=== PATIENT | female | born 1990 ===

== ENCOUNTER 2016-11-07 20:58 | Inpatient (IN) | payer OTHER ==
[2016-11-07] MEDS: hydrALAZINE 20 MG/ML VIAL IVP PRN ×2 (22:00→22:29)
[2016-11-07 22:04] LABS: % IMMATURE GRANULYOCYTES 1.1 % (0.0-1.1); ABSOLUTE IMMATURE GRANULOCYTES 0.14 10^3/uL (0.00-0.10); ADD DIFF? NO; ADD MORPH? NO; ADD SCAN? NO; ATYPICAL LYMPHOCYTE FLAG 0 (0-99); FRAGMENT RBC FLAG 0 (0-99); HEMOGLOBIN 13.5 g/dL (12.6-16.3); LEFT SHIFT FLG 0 (0-99); LIPEMIA HEMOLYSIS FLAG 90 (0-99); MEAN CELL HEMOGLOBIN 32.4 pg (27.9-34.1); MEAN CELL HEMOGLOBIN CONCENTR. 34.6 g/dL (32.4-36.7); MEAN CELL VOLUME 93.5 fL (81.5-99.8); MEAN PLATELET VOLUME 14.8 fL (8.7-11.7); PLATELET CLUMPS FLAG 0 (0-99); PLATELET COUNT 137 10^3/uL (150-400); RED BLOOD CELL COUNT 4.17 10^6/uL (4.18-5.33); RED CELL DISTRIBUTION WIDTH 13.7 % (11.5-15.2)
[2016-11-07] MEDS ORDERED: MAGNESIUM SULF 4 GM/WATER 100 ML BAG IV ONE (22:29)
[2016-11-07 22:31] LABS: ALANINE AMINOTRANSFERASE 21 IU/L (9-52); ASPARTATE AMINOTRANSFERASE 19 IU/L (14-46); BILIRUBIN,TOTAL 0.7 mg/dL (0.1-1.4); BILIRUBIN-CONJUGATED 0.3 mg/dL (0.0-0.5); BILIRUBIN-UNCONJUGATED 0.4 mg/dL (0.0-1.1); ETHANOL SERUM < 10 mg/dL (0-10); GLOMERULAR FILTRATION RATE > 60; LACTATE DEHYDROGENASE 559 IU/L (313-618); URIC ACID 7.5 mg/dL (2.5-6.8)
[2016-11-07] MEDS ORDERED: CALCIUM GLUC 10% 1 GM/10 ML VIAL IVP PRN (22:32)
[2016-11-07] MEDS ORDERED: MAGNESIUM SULF 4 GM/WATER 100 ML IV ONE (22:32)
[2016-11-07] MEDS ORDERED: LR 500 ML IV PRN (22:33)
[2016-11-07] MEDS ORDERED: CALCIUM CARBONATE 500 MG CHEWABLE TAB PO PRN (22:34)
[2016-11-07] MEDS ORDERED: LABETALOL HCL 50 MG/10 ML SYR IVP ONE (22:38)
[2016-11-07] MEDS ORDERED: Mag Sulf 500 ML IV SCH (22:45)
[2016-11-07] MEDS ORDERED: LABETALOL HCL 5 MG/ML 20 ML MDV IVP ONE (23:00)
[2016-11-07] MEDS ORDERED: OXYTOCIN/RINGERS LACTATE 500 ML IV SCH (23:00)
--- NOTE | 2016-11-07 23:08 | GHP ---
[f rep st] HISTORY AND PHYSICAL DATE OF ADMISSION: 11/07/2016 CHIEF COMPLAINT: Headache. HISTORY OF PRESENT ILLNESS: The patient is a 26-year-old, G1, P0 female who is at 40-1/2 weeks gestation dated by a 30-week ultrasound, who presents to labor and delivery with complaint of a headache that has been occurring for the past 3 days, which was not relieved with Tylenol. She also states her vision is somewhat blurred on her right side. She does have a history of migraines and states that this is not similar to her previous migraines. Her initial blood pressure is 166/115. PAST MEDICAL HISTORY: Negative. PAST SURGICAL HISTORY: Previous foot surgery. GYNECOLOGIC HISTORY: Noncontributory. FAMILY HISTORY: Significant for breast cancer. OBSTETRICAL HISTORY: This is her first . It was an unplanned . She has not received care other than ultrasound at 30 weeks for gestational dating. SOCIAL HISTORY: She is here without a partner. States she is doing well. This is an unplanned and she anticipates placing this child up for adoption. REVIEW OF SYSTEMS: Positive for headache and visual changes. She also complains of heartburn. She denies any loss of fluid or vaginal bleeding. She does state she has increased discharge. PHYSICAL EXAMINATION: VITAL SIGNS: Blood pressure is 166/115, heart rate is 87 , and temperature is 37.0. GENERAL: She is in no apparent distress. ABDOMEN: Gravid, nontender. She has no right upper quadrant pain. EXTREMITIES: She has no peripheral edema. NEUROLOGICAL: Her reflexes are 3+. PELVIC: First cervical exam is 2, 90, and -1 station. LABORATORY DATA: Her platelets are significant for 137. Her chemistries are pending. ASSESSMENT AND PLAN: At this point, I discussed with the patient that she likely has severe preeclampsia, given her elevated blood pressure and headache, and recommend proceeding to induction of labor with Gibbs bulb and Pitocin. The patient agrees to this plan. In terms of induction, she will have a Gibbs bulb placed and Pitocin begun in the morning. For severe preeclampsia, she will begin magnesium. For blood pressure management, she has received 2 doses of hydralazine with her blood pressure initially going down to 134/100. If the hydralazine does not improve her blood pressure, then we will begin IV labetalol. /[id number]/MODL MTDD
[2016-11-07] MEDS ORDERED: IBUPROFEN 600 MG TAB PO PRN (23:20)
[2016-11-07] MEDS ORDERED: EPSOM SALT 454 GM TP PRN (23:20)
[2016-11-07] MEDS ORDERED: LR 1,000 ML IV PRN (23:20)
[2016-11-07] MEDS ORDERED: OLIVE OIL 118 ML BTL MISC PRN (23:20)
[2016-11-07] MEDS ORDERED: TERBUTALINE SULFATE 1 MG/ML VIAL IV PRN (23:20)
[2016-11-07] MEDS: ONDANSETRON 4 MG/2 ML VIAL IVP PRN (23:46)
[2016-11-08 00:21] LABS: COLOR AMBER; LEUKOCYTE ESTERASE,URINE NEGATIVE (NEGATIVE); NITRITE,URINE NEGATIVE (NEGATIVE)
[2016-11-08] MEDS ORDERED: LIDOCAINE 2% JELLY 5 ML TUBE ONE (00:26)
[2016-11-08 01:01] LABS: BACTERIA 4+ /hpf (NONE SEEN); MUCUS 4+ /lpf (NONE-1+); WBC,URINE 25-50 /hpf (0-3)
[2016-11-08] MEDS ORDERED: OXYTOCIN 10 UNIT/ML VIAL ONE (02:03)
[2016-11-08] MEDS ORDERED: LIDOCAINE 1% 300 MG/30 ML SDV ONE (02:03)
[2016-11-08] MEDS ORDERED: OLIVE OIL 118 ML BTL ONE (02:03)
[2016-11-08] MEDS ORDERED: AMMONIA AROMATIC 1 EACH AMP IH ONE (02:03)
[2016-11-08] MEDS ORDERED: TERBUTALINE SULFATE 1 MG/ML VIAL ONE (02:03)
[2016-11-08] MEDS ORDERED: MISOPROSTOL 200 MCG TAB ONE (02:04)
[2016-11-08] MEDS: ACETAMINOPHEN 500 MG TAB PO PRN ×3 (02:05→15:56)
[2016-11-08 02:24] LABS: COLOR YELLOW; LEUKOCYTE ESTERASE,URINE NEGATIVE (NEGATIVE); NITRITE,URINE NEGATIVE (NEGATIVE)
[2016-11-08 02:33] LABS: HYALINE CASTS 25-50 /lpf (0-1); MUCUS 4+ /lpf (NONE-1+)
[2016-11-08] MEDS: FAMOTIDINE 20 MG/NACL 50 ML IV ONE ×2 (03:16→06:02)
[2016-11-08] MEDS: ONDANSETRON 4 MG/2 ML VIAL IVP PRN (03:43)
[2016-11-08 04:56] LABS: RUBELLA 3.43 IU/mL
[2016-11-08] MEDS ORDERED: FAMOTIDINE 20 MG/NACL/50 ML BAG IV ONE (05:54)
[2016-11-08 06:49] LABS: % IMMATURE GRANULYOCYTES 1.6 % (0.0-1.1); ABSOLUTE IMMATURE GRANULOCYTES 0.26 10^3/uL (0.00-0.10); ADD DIFF? NO; ADD MORPH? NO; ADD SCAN? NO; ATYPICAL LYMPHOCYTE FLAG 0 (0-99); FRAGMENT RBC FLAG 0 (0-99); HEMATOCRIT 40.2 % (38.0-47.0); HEMOGLOBIN 13.9 g/dL (12.6-16.3); LEFT SHIFT FLG 10 (0-99); LIPEMIA HEMOLYSIS FLAG 90 (0-99); MEAN CELL HEMOGLOBIN 32.6 pg (27.9-34.1); MEAN CELL HEMOGLOBIN CONCENTR. 34.6 g/dL (32.4-36.7); MEAN CELL VOLUME 94.4 fL (81.5-99.8); MEAN PLATELET VOLUME 14.4 fL (8.7-11.7); PLATELET CLUMPS FLAG 10 (0-99); PLATELET COUNT 139 10^3/uL (150-400); RED BLOOD CELL COUNT 4.26 10^6/uL (4.18-5.33); RED CELL DISTRIBUTION WIDTH 13.9 % (11.5-15.2)
[2016-11-08 07:12] LABS: ALANINE AMINOTRANSFERASE 23 IU/L (9-52); ASPARTATE AMINOTRANSFERASE 23 IU/L (14-46); CREATININE 1.1 mg/dL (0.6-1.0); GLOMERULAR FILTRATION RATE 59; LACTATE DEHYDROGENASE 679 IU/L (313-618)
--- NOTE | 2016-11-08 07:50 | OBPROG ---
OBG Labor Progress Note Assessment/Plan: Assessment: G1 at 40w2d No PNC Severe preeclampsia: BPs, RIDER (resolved), proteinuria, elevated creatinine to 1.1 Platelets stable Normal LFTs Plan: Continue mag Continue fluid restriction Continue pitocin Amniotomy Epidural prn Treat severe range BPs prn 11/08/16 07:49 Subjective: just starting to feel ctx. FB fell out Objective: 11/08/16 06:35 11/08/16 06:35 Patient ABO/Rh O POSITIVE 11/07/16 21:50 Uric Acid 8.0 mg/dL (2.5-6.8) H 11/08/16 06:35 Total Bilirubin 0.7 mg/dL (0.1-1.4) 11/07/16 21:50 Conjugated Bilirubin 0.3 mg/dL (0.0-0.5) 11/07/16 21:50 Unconjugated Bilirubin 0.4 mg/dL (0.0-1.1) 11/07/16 21:50 AST 23 IU/L (14-46) 11/08/16 06:35 ALT 23 IU/L (9-52) 11/08/16 06:35 Lactate Dehydrogenase 679 IU/L (313-618) H 11/08/16 06:35 Temp Pulse Resp BP Pulse Ox 63 161/101 H 11/07/16 23:00 11/07/16 23:00 VSS, mild range to normal BPs - SVE Dilation (cm): 5 Effacement (%): 75 Station: -2 Pete Current Contraction Pattern: Irregular FHR (bpm): 120 FHR Pattern Variability: Moderate FHR Category: 1 Membranes: AROM Amniotic Fluid Color: Clear - Procedures Non-surgical Procedures: Amniotomy Oxytocin Orders Assessment - Pre-Induction/Augmentation Assessment Gestational Age: 40 week(s) and 1 day(s) ICD10 Worksheet Patient Problems: Problems Problem Status Onset Severe pre-eclampsia Acute
[2016-11-08] MEDS ORDERED: BUPIVACAINE 0.25% 30 ML SDV ONE (09:03)
[2016-11-08] MEDS ORDERED: PHENYLEPHRINE HCL 100 MCG/ML SYR ONE ×2 (09:03→22:53)
[2016-11-08] MEDS ORDERED: fentaNYL 2MCG/ML/BUP 0.1% RTU 100 ML BAG EP ONE (09:03)
[2016-11-08] MEDS ORDERED: fentaNYL 100 MCG/2 ML INJ ONE ×2 (09:05→22:05)
--- NOTE | 2016-11-08 10:20 | OBPROG ---
OBG Labor Progress Note Assessment/Plan: Assessment: G1 at 40w2d No PNC Severe preeclampsia: BPs, RIDER (resolved), proteinuria, elevated creatinine to 1.1. Platelets stable Normal LFTs BPs stable FHR overall reassuring, but with low baseline. Previously 120 overnight, down to 110 this AM, now down to 105. Overall with mod partha, + accels, no decels No change in cervical dilation despite AROM and pit. did have hypotension with epidural s/p phenylephrine Plan: Continue mag Continue fluid restriction Continue pitocin IUPC Monitor continuously--fluids, keep BP in normal range, O2, position changes Mag check Treat severe range BPs prn Subjective: comfortable with epidural Objective: 11/08/16 06:35 11/08/16 06:35 Patient ABO/Rh O POSITIVE 11/07/16 21:50 Uric Acid 8.0 mg/dL (2.5-6.8) H 11/08/16 06:35 Total Bilirubin 0.7 mg/dL (0.1-1.4) 11/07/16 21:50 Conjugated Bilirubin 0.3 mg/dL (0.0-0.5) 11/07/16 21:50 Unconjugated Bilirubin 0.4 mg/dL (0.0-1.1) 11/07/16 21:50 AST 23 IU/L (14-46) 11/08/16 06:35 ALT 23 IU/L (9-52) 11/08/16 06:35 Lactate Dehydrogenase 679 IU/L (313-618) H 11/08/16 06:35 Temp Pulse Resp BP Pulse Ox 63 161/101 H 11/07/16 23:00 11/07/16 23:00 - SVE Dilation (cm): 5 Effacement (%): 75 Station: -2 Pete FHR (bpm): 105 FHR Pattern Variability: Moderate FHR Category: 1 Membranes: AROM Amniotic Fluid Color: Clear - Procedures Non-surgical Procedures: Amniotomy, IUPC Oxytocin Orders Assessment - Pre-Induction/Augmentation Assessment Gestational Age: 40 week(s) and 1 day(s) ICD10 Worksheet Patient Problems: Problems Problem Status Onset Severe pre-eclampsia Acute
--- NOTE | 2016-11-08 10:28 | PREANESOB ---
Obstetric Pre-Anesthesia Info - General Info Proposed Procedure: Labor and delivery with pitocin. : 1 Para: 0 WBD: 40 - Info Status: Full Term Monitors: External FHR Baseline (bpm): 100 FHR Pattern: Non-reassuring - Labor Status Cervical Dilation per last OB SVE: 5 Station per last OB SVE: -2 Pitocin: In Use PIH: Severe Magnesium Sulfate in Use: Yes Indications for Labor Analgesia: Induction of Labor, Pain Control Labor Epidural: Proposed Anesthesia ROS: Prior general anesthesia for foot surgery. History of migraines. Allergies/Adverse Reactions: Allergy/AdvReac Type Severity Reaction Status Date / Time No Known Allergies Allergy Unverified 11/07/16 21:16 Home Medications: Medication Instructions Recorded 11/08/16 Visit Medications: Generic Name Dose Route Start Last Admin Trade Name Freq PRN Reason Stop Dose Admin Acetaminophen 1,000 mg 11/07/16 22:34 11/08/16 07:37 Tylenol PO 05/06/17 22:33 1,000 mg Q6HRS PRN Administration Pain, Mild/Fever, Can Take PO Calcium Carbonate 500 mg 11/07/16 22:34 11/08/16 03:37 Tums PO 05/06/17 22:33 500 mg TID PRN Administration Indigestion Calcium Gluconate 1 gm 11/07/16 22:32 Calcium Gluconate IVP 05/06/17 22:31 PRN PRN Magnesium Toxicity Hydralazine HCl 10 mg 11/07/16 21:17 11/07/16 22:29 Apresoline IVP 05/06/17 21:16 10 mg Q30M PRN Administration IF BP>160/110 Lactated Ringer's 500 mls @ 500 mls/hr 11/07/16 22:33 11/07/16 23:04 Lr IV 500 mls PRN PRN Administration Maternal Hypotension Magnesium Sulfate 500 mls @ 50 mls/hr 11/07/16 22:45 11/07/16 23:50 Magnesium Sulfate 20 Gm/ 500 Ml (Premix) IV 05/06/17 22:44 500 mls CONT CRISTY Administration Oxytocin/Lactated Ringer's 500 mls @ 0 mls/hr 11/07/16 23:00 11/08/16 06:03 Pitocin 30 Units/Lr (Premix) IV 05/06/17 22:59 500 mls CONT CRISTY Administration Protocol Per Protocol Lactated Ringer's 1,000 mls @ 0 mls/hr 11/07/16 23:20 Lr IV 05/06/17 23:19 PRN PRN SEE PROTOCOL CONDITIONS Protocol Per Protocol Ibuprofen 600 mg 11/07/16 23:20 Motrin PO 05/06/17 23:19 Q6HRS PRN post , inflammation Magnesium Sulfate 454 gm 11/07/16 23:20 Epsom Salt TP 05/06/17 23:19 Q1H PRN perineal discomfort [place] Oil 118 ml 11/07/16 23:20 Sweet Oil MISC 05/06/17 23:19 ONCE PRN preneal massage Ondansetron HCl 4 mg 11/07/16 22:48 11/08/16 03:43 Zofran IVP 05/06/17 22:47 4 mg Q4HRS PRN Administration Nausea/Vomiting, Can't Take PO Terbutaline Sulfate 0.25 mg 11/07/16 23:20 Brethine IV 05/06/17 23:19 ONCE PRN Tachysystole Discontinued Medications Generic Name Dose Route Start Last Admin Trade Name Freq PRN Reason Stop Dose Admin Ammonia (Aromatic Spirit) Confirm 11/08/16 02:03 Ammonia Aromatic Administered 11/08/16 02:04 Dose 1 each IH .STK-MED ONE Bupivacaine HCl Confirm 11/08/16 09:03 Sensorcaine 0.25% Sdv Administered 11/08/16 09:04 Dose 30 ml .ROUTE .STK-MED ONE Famotidine/Sodium Chloride Confirm 11/08/16 05:54 Pepcid 20 Mg (Premix) Administered 11/08/16 05:55 Dose 20 mg IV .STK-MED ONE Fentanyl Confirm 11/08/16 09:05 Sublimaze Administered 11/08/16 09:06 Dose 100 mcg .ROUTE .STK-MED ONE Fentanyl/Bupivacaine HCl Confirm 11/08/16 09:03 Fentanyl/Bupivacaine/Ns 2 Mcg/Ml 0.1% (Premix Administered 11/08/16 09:04 Dose 100 ml EP .STK-MED ONE Famotidine/Sodium Chloride 50 mls @ 200 mls/hr 11/07/16 22:34 11/08/16 06:02 Pepcid 20 Mg (Premix) IV 11/07/16 22:48 50 mls ONCE ONE Administration Magnesium Sulfate 100 mls @ 200 mls/hr 11/07/16 22:32 11/07/16 23:10 Magnesium Sulf 4 Gm (Premix) IV 11/07/16 23:01 100 mls ONCE ONE Administration Labetalol HCl 20 mg 11/07/16 22:38 11/08/16 03:17 Labetalol Hcl IVP 11/07/16 22:39 Not Given ONCE ONE Labetalol HCl 20 mg 11/07/16 23:00 11/07/16 23:00 Trandate Injection IVP 11/07/16 23:01 20 mg ONCE ONE Administration Lidocaine Confirm 11/08/16 00:26 Lidocaine 2% Jelly Administered 11/08/16 00:27 Dose 5 oliva .ROUTE .STK-MED ONE Lidocaine HCl Confirm 11/08/16 02:03 Lidocaine Hcl 1% Administered 11/08/16 02:04 Dose 300 mg .ROUTE .STK-MED ONE Magnesium Sulfate Confirm 11/07/16 22:29 Magnesium Sulf 4 Gm (Premix) Administered 11/07/16 22:30 Dose 4 gm IV .STK-MED ONE Misoprostol Confirm 11/08/16 02:04 Cytotec Administered 11/08/16 02:05 Dose 800 mcg .ROUTE .STK-MED ONE [place] Oil Confirm 11/08/16 02:03 Sweet Oil Administered 11/08/16 02:04 Dose 118 ml .ROUTE .STK-MED ONE Oxytocin Confirm 11/08/16 02:03 Pitocin Administered 11/08/16 02:04 Dose 30 unit .ROUTE .STK-MED ONE Phenylephrine HCl Confirm 11/08/16 09:03 Neosynephrine Administered 11/08/16 09:04 Dose 1,000 mcg .ROUTE .STK-MED ONE Terbutaline Sulfate Confirm 11/08/16 02:03 Brethine Administered 11/08/16 02:04 Dose 1 mg .ROUTE .STK-MED ONE - Anesthesia History Response to Local Anesthetics: Normal Anesthesia & Operative History: No Prior Problems Family Anesthesia History: Negative - Social History Substance Use/Abuse: Denies (Quit smoking.) - Focused Exam Latest Vital Signs (Nursing): Temp Pulse Resp BP Pulse Ox 63 161/101 H 11/07/16 23:00 11/07/16 23:00 Blood Pressure: 138/89 Heart Rate: 74 Respiratory Rate: 16 Height/Weight (Nursing): Height 154.94 cm Weight 65.771 kg Airway: No abnormalities. Physical Exam: Within normal limits. ASA Status: II Labs: 11/08/16 06:35 11/08/16 06:35 Patient ABO/Rh O POSITIVE 11/07/16 21:50 Uric Acid 8.0 mg/dL (2.5-6.8) H 11/08/16 06:35 Total Bilirubin 0.7 mg/dL (0.1-1.4) 11/07/16 21:50 Conjugated Bilirubin 0.3 mg/dL (0.0-0.5) 11/07/16 21:50 Unconjugated Bilirubin 0.4 mg/dL (0.0-1.1) 11/07/16 21:50 AST 23 IU/L (14-46) 11/08/16 06:35 ALT 23 IU/L (9-52) 11/08/16 06:35 Lactate Dehydrogenase 679 IU/L (313-618) H 11/08/16 06:35 - Plan Anesthetic Plan: CSE Consent Signed and on Chart: Yes Patient/Guardian Understands and Agrees to Plan: Yes Urgent/Emergent Case: José Luis brumfield completed preop but documented later for safe timely pt care
[2016-11-08 10:30] VITALS: RESP 16
--- NOTE | 2016-11-08 10:31 | POSTANESTH ---
Post Anesthetic Evaluation Cardiovascular Status: Tx Hyper/Hypo-tension Respiratory Status: Normal, Stable Level of Consciousness/Mental Status: Can Participate in Eval Pain Control: Adequate, Prn Tx Ordered Nausea/Vomiting Control: Adequate, Prn Tx Ordered Complications Possibly Related to Anesthesia: None Noted (BP stable after phenylephrine.)
[2016-11-08] MEDS ORDERED: PHENYLEPHRINE HCL 100 MCG/ML SYR IVP PRN (10:32)
[2016-11-08] MEDS ORDERED: fentaNYL 2MCG/ML/BUP 0.1% RTU 100 ML EP SCH (11:00)
[2016-11-08] MEDS ORDERED: LR 500 ML IV SCH (11:00)
--- NOTE | 2016-11-08 12:55 | OBPROG ---
OBG Labor Progress Note Assessment/Plan: Assessment: G1 at 40w2d No PNC, dated by 30 week US Severe preeclampsia: BPs, RIDER (resolved), proteinuria, elevated creatinine to 1.1. Platelets stable Normal LFTs BPs stable FHR overall reassuring, but with low baseline. Previously 120 overnight, down to 100-105 this AM. Now back to 105-110. Overall moderate variability and spontaneous accels, no e/o distress. No change in cervix despite pitocin = 22 mu/min and AROM 6.5 hrs ag Plan: Continue mag (decreased to 1.5, will now decrease to 1.0 given the higher level and she is c/o loss of feeling in her tongue). DTRs minimal. Will repeat mag check in 1-2 hours to ensure is not continuing to rise. Continue fluid restriction Continue pitocin, OK to increase to 30 mu/min IUPC Monitor continuously--fluids, keep BP in normal range, O2, position changes Treat severe range BPs prn Reviewed plan of care with pt, unable to get adequate MVUs, if this continues despite pitocin = 30 mu/min that may require C/S. She agrees with plan. 11/08/16 12:52 Subjective: Had some pressure, better after pushing epidural button Objective: 11/08/16 06:35 11/08/16 06:35 Patient ABO/Rh O POSITIVE 11/07/16 21:50 Uric Acid 8.0 mg/dL (2.5-6.8) H 11/08/16 06:35 Total Bilirubin 0.7 mg/dL (0.1-1.4) 11/07/16 21:50 Conjugated Bilirubin 0.3 mg/dL (0.0-0.5) 11/07/16 21:50 Unconjugated Bilirubin 0.4 mg/dL (0.0-1.1) 11/07/16 21:50 AST 23 IU/L (14-46) 11/08/16 06:35 ALT 23 IU/L (9-52) 11/08/16 06:35 Lactate Dehydrogenase 679 IU/L (313-618) H 11/08/16 06:35 Temp Pulse Resp BP Pulse Ox 74 16 138/89 H 11/08/16 10:30 11/08/16 10:30 11/08/16 10:30 Mag level = 9.1 - SVE Dilation (cm): 5 Effacement (%): 75 Station: -2 Pete Current Contraction Pattern: Irregular, Other (Specify) (MVU 88-120) FHR (bpm): 105 FHR Pattern Variability: Moderate FHR Category: 1 Membranes: AROM Amniotic Fluid Color: Clear - Procedures Non-surgical Procedures: Amniotomy, IUPC Oxytocin Orders Assessment - Pre-Induction/Augmentation Assessment Gestational Age: 40 week(s) and 1 day(s) ICD10 Worksheet Patient Problems: Problems Problem Status Onset Severe pre-eclampsia Acute
--- NOTE | 2016-11-08 17:46 | OBPROG ---
OBG Labor Progress Note Assessment/Plan: Assessment: G1 at 40w2d No PNC, dated by 30 week US Severe preeclampsia: BPs, RIDER (resolved), proteinuria, elevated creatinine to 1.1. Mag level elevated to 9.3 despite turning down mag to 1 g/hr. Mag now off for last few hours Repeat PIH labs including creatinine BPs stable, no sustained severe range FHR overall reassuring, but with low baseline. Previously 120 overnight, down to 100-105 this AM. Now back to 105-110. Overall moderate variability and spontaneous accels, no e/o distress. Slow change in cervix, now 6 cm, MVUs still inadequate but improved to 100-150 on 30 mu/min of pit UOP adequate Plan: Recheck mag level now and then likely restart at 1g/hr with goal between 4-8. Continue fluid restriction Continue pitocin, stay at 30 mu/min IUPC in place Monitor continuously--fluids, keep BP in normal range, O2, position changes Treat severe range BPs prn Reviewed plan of care with pt, if no change by 4 hours would consider arrest of dilation, she agrees with plan Reviewed plan of care with adoptive parents and reviewed their preferences for delivery Subjective: In good spirits. Adoptive parents at bedside, flew in from [place] Objective: 11/08/16 06:35 11/08/16 06:35 Patient ABO/Rh O POSITIVE 11/07/16 21:50 Uric Acid 8.0 mg/dL (2.5-6.8) H 11/08/16 06:35 Total Bilirubin 0.7 mg/dL (0.1-1.4) 11/07/16 21:50 Conjugated Bilirubin 0.3 mg/dL (0.0-0.5) 11/07/16 21:50 Unconjugated Bilirubin 0.4 mg/dL (0.0-1.1) 11/07/16 21:50 AST 23 IU/L (14-46) 11/08/16 06:35 ALT 23 IU/L (9-52) 11/08/16 06:35 Lactate Dehydrogenase 679 IU/L (313-618) H 11/08/16 06:35 Temp Pulse Resp BP Pulse Ox 74 16 138/89 H 11/08/16 10:30 11/08/16 10:30 11/08/16 10:30 Mag = 9.1 --> 1 g/hr --> 9.3 --> 0 g/hr --> [] - SVE Dilation (cm): 6 Effacement (%): 80 Station: -2 Pete FHR (bpm): 105 FHR Pattern Variability: Absent, Moderate FHR Category: 1 Membranes: AROM Amniotic Fluid Color: Clear - Procedures Non-surgical Procedures: Amniotomy, IUPC Oxytocin Orders Assessment - Pre-Induction/Augmentation Assessment Gestational Age: 40 week(s) and 1 day(s) ICD10 Worksheet Patient Problems: Problems Problem Status Onset Severe pre-eclampsia Acute
[2016-11-08 18:30] LABS: ALANINE AMINOTRANSFERASE 20 IU/L (9-52); ASPARTATE AMINOTRANSFERASE 19 IU/L (14-46); BILIRUBIN,TOTAL 0.9 mg/dL (0.1-1.4); BILIRUBIN-CONJUGATED 0.6 mg/dL (0.0-0.5); BILIRUBIN-UNCONJUGATED 0.3 mg/dL (0.0-1.1); CREATININE 1.1 mg/dL (0.6-1.0); GLOMERULAR FILTRATION RATE 59; LACTATE DEHYDROGENASE 579 IU/L (313-618)
[2016-11-08 18:35] LABS: MAGNESIUM 6.7 mg/dL (1.6-2.3)
[2016-11-08 18:56] LABS: % IMMATURE GRANULYOCYTES 1.8 % (0.0-1.1); ABSOLUTE IMMATURE GRANULOCYTES 0.26 10^3/uL (0.00-0.10); ABSOLUTE NRBC COUNT 0.03 10^3/uL (0-0.01); ADD DIFF? NO; ADD MORPH? NO; ADD SCAN? NO; ATYPICAL LYMPHOCYTE FLAG 10 (0-99); FRAGMENT RBC FLAG 0 (0-99); HEMATOCRIT 37.5 % (38.0-47.0); HEMOGLOBIN 12.9 g/dL (12.6-16.3); LEFT SHIFT FLG 10 (0-99); LIPEMIA HEMOLYSIS FLAG 90 (0-99); MEAN CELL HEMOGLOBIN 32.5 pg (27.9-34.1); MEAN CELL HEMOGLOBIN CONCENTR. 34.4 g/dL (32.4-36.7); MEAN CELL VOLUME 94.5 fL (81.5-99.8); MEAN PLATELET VOLUME 14.7 fL (8.7-11.7); NRBC-AUTO% 0.2 % (0.0-0.2); PLATELET CLUMPS FLAG 10 (0-99); PLATELET COUNT 149 10^3/uL (150-400); RED BLOOD CELL COUNT 3.97 10^6/uL (4.18-5.33); RED CELL DISTRIBUTION WIDTH 13.8 % (11.5-15.2)
--- NOTE | 2016-11-08 20:50 | OBPROG ---
OBG Labor Progress Note Assessment/Plan: Assessment: G1 at 40w2d No PNC, dated by 30 week US Adopting out child: adoptive parents are here Severe preeclampsia: BPs, RIDER (resolved), proteinuria, elevated creatinine to 1.1 , stable Mag level improved after briefly stopping magnesium. Now at 0.5 g/hr BPs stable, no sustained severe range FHR overall reassuring, but with low baseline. Previously 120 overnight, down to 100-105 this AM. Now back to 105-110. Overall moderate variability and spontaneous accels, no e/o distress. Slow change in cervix, after 3 hours changed only from 6 to 6.5 cm. Improvement in descent (now at -1 station). However MVUs are slowly dropping despite pit 30 mu/min UOP adequate IUPC fell out on check Plan: Recheck mag level now, adjust prn Continue fluid restriction Continue pitocin, will do pit rest x 15 min and then restart at 16 mu/min as her MVUs have been dropping off, see if we can improve contraction frequency and strength Replace IUPC prn Monitor continuously--fluids, keep BP in normal range, O2, position changes Treat severe range BPs prn Reviewed plan of care with pt, if cannot get MVUs adequate and no significant change in next hour will plan C/S for arrest of dilation. She agrees with plan. 11/08/16 20:43 Subjective: sleeping. Got another RIDER when mag restarted Objective: 11/08/16 18:05 11/08/16 18:05 Patient ABO/Rh O POSITIVE 11/07/16 21:50 Uric Acid 8.0 mg/dL (2.5-6.8) H 11/08/16 18:05 Total Bilirubin 0.9 mg/dL (0.1-1.4) 11/08/16 18:05 Conjugated Bilirubin 0.6 mg/dL (0.0-0.5) H 11/08/16 18:05 Unconjugated Bilirubin 0.3 mg/dL (0.0-1.1) 11/08/16 18:05 AST 19 IU/L (14-46) 11/08/16 18:05 ALT 20 IU/L (9-52) 11/08/16 18:05 Lactate Dehydrogenase 579 IU/L (313-618) 11/08/16 18:05 Temp Pulse Resp BP Pulse Ox 74 16 138/89 H 11/08/16 10:30 11/08/16 10:30 11/08/16 10:30 BPs: mild range - SVE Dilation (cm): 6 (6.5) Effacement (%): 80 Station: -1 Pete FHR (bpm): 105 FHR Pattern Variability: Moderate Membranes: AROM Amniotic Fluid Color: Clear - Procedures Non-surgical Procedures: Amniotomy, IUPC Oxytocin Orders Assessment - Pre-Induction/Augmentation Assessment Gestational Age: 40 week(s) and 1 day(s) ICD10 Worksheet Patient Problems: Problems Problem Status Onset Severe pre-eclampsia Acute
[2016-11-08] MEDS ORDERED: LR 500 ML IV ONE (22:02)
[2016-11-08] MEDS ORDERED: ceFAZolin 2 GM/DEXTROSE 100 ML IV ONE (22:02)
[2016-11-08] MEDS ORDERED: LIDO/EPI 2% **for epidural** 20 ML SDV ONE (22:05)
--- NOTE | 2016-11-08 22:13 | OBPROG ---
OBG Labor Progress Note Assessment/Plan: Assessment: G1 at 40w2d No PNC, dated by 30 week US Adopting out child: adoptive parents are here Severe preeclampsia: BPs, RIDER (resolved), proteinuria, elevated creatinine to 1.1 , stable Mag level stable after briefly stopping magnesium. Now at 0.5 g/hr BPs stable, no sustained severe range FHR overall reassuring, but with low baseline. Previously 120 overnight, down to 100-105 this AM. Now back to 105-110. Overall moderate variability and spontaneous accels, no e/o distress. UOP adequate ARREST OF DILATION: No significant change since 1730 PM, > 4 hours. She is 6- 6.5 cm, 80 %, -1 station, now with worsening caput, no change in dilation or station despite trial of pit rest and restarting. Reviewed that issue is inability to get adequate and regular contractions, despite being on pitocin 30 mu/min for most of the day. Plan: Recommend C/S for labor arrest. She agrees with plan. Discussed risks including pain, infection, bleeding, transfusion, injury to other organs, implications for future . She agrees to proceed, consents signed Recheck x 24 hours Continue fluid restriction Subjective: comfortable. sleeping Objective: 11/08/16 18:05 11/08/16 18:05 Patient ABO/Rh O POSITIVE 11/07/16 21:50 Uric Acid 8.0 mg/dL (2.5-6.8) H 11/08/16 18:05 Total Bilirubin 0.9 mg/dL (0.1-1.4) 11/08/16 18:05 Conjugated Bilirubin 0.6 mg/dL (0.0-0.5) H 11/08/16 18:05 Unconjugated Bilirubin 0.3 mg/dL (0.0-1.1) 11/08/16 18:05 AST 19 IU/L (14-46) 11/08/16 18:05 ALT 20 IU/L (9-52) 11/08/16 18:05 Lactate Dehydrogenase 579 IU/L (313-618) 11/08/16 18:05 Temp Pulse Resp BP Pulse Ox 74 16 138/89 H 11/08/16 10:30 11/08/16 10:30 11/08/16 10:30 Mag = 6.0 - SVE Dilation (cm): 6 Effacement (%): 80 Station: -1 - Procedures Non-surgical Procedures: Amniotomy, IUPC Oxytocin Orders Assessment - Pre-Induction/Augmentation Assessment Gestational Age: 40 week(s) and 1 day(s) ICD10 Worksheet Patient Problems: Problems Problem Status Onset Severe pre-eclampsia Acute
[2016-11-08] MEDS ORDERED: LR 1,000 ML IV SCH (22:30)
[2016-11-08] MEDS ORDERED: ONDANSETRON 4 MG/2 ML VIAL ONE ×2 (22:40)
[2016-11-08] MEDS ORDERED: DEXAMETHASONE 4 MG/ML VIAL ONE (22:40)
[2016-11-08] MEDS ORDERED: OXYTOCIN 100 UNITS/10 ML VIAL ONE (22:40)
[2016-11-08] MEDS ORDERED: morphINE PF 5 MG/10 ML INJ IT ONE (23:00)
[2016-11-08] MEDS ORDERED: PROPOFOL 200 MG/20 ML VIAL ONE (23:05)
[2016-11-08] MEDS ORDERED: MEPERIDINE 25 MG/ML SYR ONE (23:05)
[2016-11-08 23:10] LABS: CORD BLOOD PCO2 52.6 mmHg (37-60); PH ARTERIAL CORD BLOOD 7.23 (7.10-7.37)
[2016-11-08 23:13] LABS: PH VENOUS CORD BLOOD 7.31 (7.20-7.42)
[2016-11-08] MEDS ORDERED: CALCIUM GLUC 10% 1 GM/10 ML VIAL IVP PRN (23:19)
[2016-11-08] MEDS ORDERED: PROMETHAZINE HCL 25 MG/ML INJ IVP PRN (23:19)
[2016-11-08] MEDS ORDERED: OXYCODONE/APAP 5/325 TAB PO PRN (23:19)
--- NOTE | 2016-11-08 23:28 | OBDEL ---
Info Type: Primary GBS+: No (unknown) Indications for Delivery: Preeclampsia Severe Vaginal Delivery - Labor and Delivery Onset of Contractions Date: 11/08/16 Onset of Contractions Time: 11:00 Rupture of Membranes Date: 11/08/16 Rupture of Membranes Time: 07:24 Non-surgical Procedures: Amniotomy, IUPC Cord Gases: Cord Gases Cord Blood PCO2 52.6 mmHg (37-60) 11/08/16 22:50 Cord Base Excess -7.0 mEq/L (-13.6--3.2) 11/08/16 22:50 Cord ABG pH 7.23 (7.10-7.37) 11/08/16 22:50 Cord VBG pH 7.31 (7.20-7.42) 11/08/16 22:50 Operative Report - Delivery Pre-op Diagnoses: Arrest of dilation Post-op Diagnoses: Arrest of dilation Nulliparous Prior to Delivery: Yes Presentation at Delivery: Vertex Procedure: Unscheduled Surgeon: Kayleigh Hua Waitstaff Captain: Kyara Ryan Anesthesiologist: Pedro Lance L&D Analgesia/Anesthesia Type: Epidural Complications: None Specimen(s)/Path: Placenta EBL: 700 Cord Gases: Cord Gases Cord Blood PCO2 52.6 mmHg (37-60) 11/08/16 22:50 Cord Base Excess -7.0 mEq/L (-13.6--3.2) 11/08/16 22:50 Cord ABG pH 7.23 (7.10-7.37) 11/08/16 22:50 Cord VBG pH 7.31 (7.20-7.42) 11/08/16 22:50 Data Pete Delivery Date: 11/08/16 Delivery Time: 22:48 DANIELE: 11/06/16 Gestational Age: 40 week(s) and 2 day(s) Sex of Infant: Male Score (1 Min): 7 Score (5 Min): 8 ICD10 Worksheet Patient Problems: Problems Problem Status Onset delivery delivered Acute Severe pre-eclampsia Acute - ICD10 Problem Qualifiers (1) delivery delivered
[2016-11-08] MEDS ORDERED: Mag Sulf 500 ML IV SCH (23:30)
[2016-11-08] MEDS ORDERED: ONDANSETRON 4 MG/2 ML VIAL IVP PRN (23:55)
[2016-11-08] MEDS ORDERED: NALOXONE HCL 0.4 MG/ML INJ IVP PRN (23:55)
--- NOTE | 2016-11-09 | POSTANESTH ---
Post Anesthetic Evaluation Cardiovascular Status: Normal, Stable, Similar to Pre-Op Cond Respiratory Status: Normal, Stable, Similar to Pre-op Cond. Level of Consciousness/Mental Status: Can Participate in Eval, Alert and Oriented Pain Control: Adequate, Prn Tx Ordered Nausea/Vomiting Control: Adequate, Prn Tx Ordered Complications Possibly Related to Anesthesia: None Noted (Epidural dosed for C Section, to OR, BP treated, comfortable for surgery, to PACU, no pain or nausea. )
[2016-11-09] MEDS ORDERED: OXYTOCIN 10 UNIT/ML VIAL IM ONE (01:00)
[2016-11-09 06:51] LABS: ALANINE AMINOTRANSFERASE 19 IU/L (9-52); ASPARTATE AMINOTRANSFERASE 21 IU/L (14-46); CREATININE 1.1 mg/dL (0.6-1.0); GLOMERULAR FILTRATION RATE 59; LACTATE DEHYDROGENASE 703 IU/L (313-618)
[2016-11-09 07:10] LABS: % IMMATURE GRANULYOCYTES 0.6 % (0.0-1.1); ABSOLUTE IMMATURE GRANULOCYTES 0.14 10^3/uL (0.00-0.10); ADD DIFF? NO; ADD MORPH? NO; ADD SCAN? YES; ATYPICAL LYMPHOCYTE FLAG 0 (0-99); FRAGMENT RBC FLAG 0 (0-99); HEMOGLOBIN 12.6 g/dL (12.6-16.3); LEFT SHIFT FLG 10 (0-99); LIPEMIA HEMOLYSIS FLAG 90 (0-99); MEAN CELL HEMOGLOBIN 33.1 pg (27.9-34.1); MEAN CELL VOLUME 94.5 fL (81.5-99.8); MEAN PLATELET VOLUME 14.4 fL (8.7-11.7); PLATELET COUNT 135 10^3/uL (150-400); RED BLOOD CELL COUNT 3.81 10^6/uL (4.18-5.33); RED CELL DISTRIBUTION WIDTH 14.2 % (11.5-15.2)
[2016-11-09 07:12] LABS: PLATELET CLUMPS FLAG 300 (0-99)
[2016-11-09 07:27] LABS: MAGNESIUM 5.8 mg/dL (1.6-2.3)
[2016-11-09 07:31] LABS: SCAN NEGATIVE
[2016-11-09] MEDS ORDERED: hydrALAZINE 20 MG/ML VIAL IVP ONE (07:57)
--- NOTE | 2016-11-09 08:14 | OBPP ---
Progress Note Assessment/Plan: Assessment: 26 y.o. s/p primary C/S for FTP following IOL for severe preeclampsia. Remains on MgSO4 @ 1gm/ hr, perez in place and draining 200cc/hr, IVF @ 75 cc/ hr. BP readings remain elevated, so consulted with Dr. Wright and will administer hydralazine 5mg IVP and monitor BP for effect. Plan: Continue MgSO4 @ 2gm/hr with IVF @ 75 cc/hr until 24 hours after delivery. Perez and plexi-pulse to remain in place. Remove abdominal bandage. Continue to monitor BP. 11/09/16 08:10 11/09/16 08:17 Subjective: Patient reports feeling fatigued. Denies current headaches, visual changes or RUQ pain. No edema noted bilaterally. DTRs- 2+, clonus 1 beat. Reports feeling itchy, but denies having much pain or vaginal bleeding. Continues to take sips and chips only and tolerating well without n/v. Appropriate mood. Objective: 11/09/16 06:00 11/09/16 06:00 Patient ABO/Rh O POSITIVE 11/07/16 21:50 Uric Acid 8.0 mg/dL (2.5-6.8) H 11/09/16 06:00 Total Bilirubin 0.9 mg/dL (0.1-1.4) 11/08/16 18:05 Conjugated Bilirubin 0.6 mg/dL (0.0-0.5) H 11/08/16 18:05 Unconjugated Bilirubin 0.3 mg/dL (0.0-1.1) 11/08/16 18:05 AST 21 IU/L (14-46) 11/09/16 06:00 ALT 19 IU/L (9-52) 11/09/16 06:00 Lactate Dehydrogenase 703 IU/L (313-618) H 11/09/16 06:00 Temp Pulse Resp BP Pulse Ox 74 16 138/89 H 11/08/16 10:30 11/08/16 10:30 11/08/16 10:30 Uterine Position/Fundal Height: Umbilicus -1 Uterine Tone: Firm Physical Exam - Physical Exam General Appearance: WD/WN, alert, no apparent distress EENT: normal ENT inspection Neck: non-tender, full range of motion, normal inspection Respiratory: lungs clear, normal breath sounds Cardiac/Chest: regular rate, rhythm Abdomen: non-tender, soft Extremities: non-tender, normal inspection Back: Normal inspection Skin: normal color, warm/dry Neuro/Psych: alert, normal mood/affect, oriented x 3
--- NOTE | 2016-11-09 08:18 | GOP ---
[f rep st] OPERATIVE REPORT DATE OF OPERATION: 11/08/2016 SURGEON: Kayleigh Hua MD SILK SCREEN ETCHER: NATALIA Patel. ANESTHESIA: Epidural. ANESTHESIOLOGIST: Pedro Lance MD. PREOPERATIVE DIAGNOSIS: 1. 1, para 0, at 40 weeks and 2 days gestational age dated by a 30 week ultrasound. 2. No care. 3. Preeclampsia with severe features. 4. Arrest of dilation. POSTOPERATIVE DIAGNOSIS: 1. 1, para 0, at 40 weeks and 2 days gestational age dated by a 30 week ultrasound. 2. No care. 3. Preeclampsia with severe features. 4. Arrest of dilation. PROCEDURE PERFORMED: Primary low transverse section. FINDINGS: Viable male in vertex presentation, left occiput transverse. Apgars 7 and 8. Weight pending. Normal tubes and ovaries. SPECIMENS: Placenta and cord gas. ESTIMATED BLOOD LOSS: 700. INDICATIONS: Patient is a 26-year-old, 1, para 0, at 40 weeks and 2 days gestational age by a 30 week ultrasound. She had no care. She presented approximately 24 hours ago with a headache and was found to have preeclampsia with severe features based on blood pressures in severe range, proteinuria, and elevated creatinine to 1.1. Induction of labor was begun with Gibbs bulb and Pitocin. She initially needed IV antihypertensives, and her blood pressure then returned to normal to mild range. She was started on magnesium therapy for seizure prophylaxis. She is GBS unknown, and in the setting of a term , antibiotics were not given at the time of labor. She was able to reach 6 cm dilation but, beyond that, had no further dilation and could not attain adequate contraction strength with pitocin. It was recommended to proceed with delivery for arrest of dilation, and she agreed to proceed. We reviewed the risks and benefits in detail. I also reviewed the plan of care with the patient's intended adoptive parents. Everyone agreed with plan. DESCRIPTION OF PROCEDURE: Patient was brought to the operating room. A time- out was performed. The epidural was bolused, 2 g IV Kefzol was given. She was prepped and draped in normal sterile fashion with a Gibbs catheter in place with a leftward tilt. A final time-out was performed. A 10 cm skin incision was made 2 cm above the pubic bone. This was carried down to the fascia with the Bovie. The fascia was nicked in the midline, incised, and sharply extended on either side. The fascia was grasped with Riddhi's anteriorly and dissected off the underlying rectus muscles. The same was performed inferiorly. The peritoneum was entered bluntly and stretched. The bladder blade was placed, and a bladder flap was made. A low transverse incision was made with a scalpel and extended bluntly. The baby was delivered without complication. Two loose nuchal cords were reduced. Delayed cord clamping was performed for approximately 30 seconds, but as tone was poor likely due to magnesium, the cord was then clamped and cut, and the baby was handed off to the waiting providers. A cord segment was taken for cord gases, and cord blood was collected. The placenta was easily removed. The uterus was exteriorized and cleared of all clots and debris. The hysterotomy was closed with 0 Monocryl in a running, locked fashion. A second suture was performed with an imbricating stitch. Hemostasis was noted at this time. The uterus was placed back in the abdomen. The gutters were swabbed. Hemostasis was noted along the hysterotomy. Hemostasis was noted of the rectus muscles and the subfascial spaces. The fascia was closed with 0 Vicryl in a running stitch. The subcutaneous tissues were copiously irrigated, and hemostasis was assured. The subcutaneous tissues were reapproximated with 2-0 Vicryl, and 4-0 Monocryl was used to close the skin. The patient tolerated the procedure well. Counts were correct x2. She was taken to the recovery room in stable condition. She will stay on magnesium for 24 hours for ongoing seizure prophylaxis for severe preeclampsia. COMPLICATIONS: None. SURGEON: Kayleigh Hua MD. /[id number]/MODL MTDD
[2016-11-09] MEDS: HYDROCODONE/APAP 5/325 TAB PO PRN ×2 (12:53→20:36)
[2016-11-09] MEDS ORDERED: CALCIUM CARBONATE 500 MG CHEWABLE TAB PO PRN (15:14)
[2016-11-09] MEDS: SIMETHICONE 80 MG TAB CHEW PO PRN (15:29)
[2016-11-09] MEDS: LABETALOL HCL 100 MG TAB PO SCH (20:36)
[2016-11-10] MEDS: HYDROCODONE/APAP 5/325 TAB PO PRN ×5 (01:06→19:22)
[2016-11-10] MEDS: SIMETHICONE 80 MG TAB CHEW PO PRN ×5 (01:14→19:22)
[2016-11-10 06:47] LABS: % IMMATURE GRANULYOCYTES 1.4 % (0.0-1.1); ABSOLUTE IMMATURE GRANULOCYTES 0.25 10^3/uL (0.00-0.10); ADD DIFF? NO; ADD MORPH? NO; ADD SCAN? NO; ATYPICAL LYMPHOCYTE FLAG 0 (0-99); FRAGMENT RBC FLAG 10 (0-99); HEMATOCRIT 29.2 % (38.0-47.0); LEFT SHIFT FLG 10 (0-99); LIPEMIA HEMOLYSIS FLAG 90 (0-99); MEAN CELL HEMOGLOBIN 32.9 pg (27.9-34.1); MEAN CELL HEMOGLOBIN CONCENTR. 34.2 g/dL (32.4-36.7); MEAN CELL VOLUME 96.1 fL (81.5-99.8); MEAN PLATELET VOLUME 13.4 fL (8.7-11.7); PLATELET CLUMPS FLAG 10 (0-99); PLATELET COUNT 157 10^3/uL (150-400); RED BLOOD CELL COUNT 3.04 10^6/uL (4.18-5.33); RED CELL DISTRIBUTION WIDTH 14.6 % (11.5-15.2)
[2016-11-10 07:01] LABS: ALANINE AMINOTRANSFERASE 20 IU/L (9-52); ASPARTATE AMINOTRANSFERASE 17 IU/L (14-46); BILIRUBIN,TOTAL 0.5 mg/dL (0.1-1.4); BILIRUBIN-CONJUGATED 0.4 mg/dL (0.0-0.5); BILIRUBIN-UNCONJUGATED 0.1 mg/dL (0.0-1.1); CREATININE 0.9 mg/dL (0.6-1.0); GLOMERULAR FILTRATION RATE > 60; LACTATE DEHYDROGENASE 504 IU/L (313-618)
--- NOTE | 2016-11-10 08:13 | OBPP ---
Progress Note Assessment/Plan: Assessment: 26 y.o. s/p primary C/S for FTP following IOL for severe preeclampsia. MgSO4 discontinued at 0100. IV is hep locked. Gibbs remains in place and continues to drain 200-400cc/hr. BP readings improved with Procardia 100mg PO BID. Adopting baby out. Plan: Discontinue Gibbs catheter and abdominal bandage. Encourage ambulation. Continue to closely monitor BPs and recheck [facility] labs tomorrow AM. 11/09/16 08:10 11/09/16 08:17 11/10/16 08:09 Subjective: Reports feeling well with increased incisional pain from C/S. Incision appears CDI. Minimal vaginal bleeding. Adopting baby out. Eating and drinking well without nausea or vomiting. Will attempt to ambulate patient and monitor for vertigo. Appropriate mood. Objective: 11/10/16 06:40 11/10/16 06:40 Patient ABO/Rh O POSITIVE 11/07/16 21:50 Uric Acid 8.0 mg/dL (2.5-6.8) H 11/10/16 06:40 Total Bilirubin 0.5 mg/dL (0.1-1.4) 11/10/16 06:40 Conjugated Bilirubin 0.4 mg/dL (0.0-0.5) 11/10/16 06:40 Unconjugated Bilirubin 0.1 mg/dL (0.0-1.1) 11/10/16 06:40 AST 17 IU/L (14-46) 11/10/16 06:40 ALT 20 IU/L (9-52) 11/10/16 06:40 Lactate Dehydrogenase 504 IU/L (313-618) 11/10/16 06:40 Temp Pulse Resp BP Pulse Ox 71 16 153/99 H 11/09/16 20:36 11/08/16 10:30 11/09/16 20:36 Uterine Position/Fundal Height: Umbilicus -1 Uterine Tone: Firm Physical Exam - Physical Exam General Appearance: WD/WN, alert, mild distress EENT: normal ENT inspection Neck: non-tender, full range of motion, normal inspection Respiratory: lungs clear, normal breath sounds Cardiac/Chest: regular rate, rhythm Abdomen: normal bowel sounds, non-tender, soft Extremities: non-tender, normal inspection Back: Normal inspection Skin: normal color, warm/dry Neuro/Psych: alert, normal mood/affect, oriented x 3
[2016-11-10] MEDS: LABETALOL HCL 100 MG TAB PO SCH ×2 (08:36→20:38)
[2016-11-10] MEDS: FERROUS SULFATE 325 MG TAB PO SCH (08:36)
[2016-11-10] MEDS: DOCUSATE SODIUM 100 MG CAP PO PRN ×2 (14:02→19:22)
[2016-11-10] MEDS: IBUPROFEN 600 MG TAB PO PRN ×2 (14:31→20:38)
[2016-11-10] MEDS: diphenhydrAMINE 25 MG CAP PO PRN (22:17)
[2016-11-11] MEDS: diphenhydrAMINE 25 MG CAP PO PRN ×2 (03:58→19:46)
[2016-11-11] MEDS: HYDROCODONE/APAP 5/325 TAB PO PRN ×3 (04:02→19:49)
[2016-11-11] MEDS: IBUPROFEN 600 MG TAB PO PRN ×3 (07:49→19:48)
[2016-11-11] MEDS: FERROUS SULFATE 325 MG TAB PO SCH (07:49)
[2016-11-11] MEDS: DOCUSATE SODIUM 100 MG CAP PO PRN (07:50)
[2016-11-11] MEDS: LABETALOL HCL 100 MG TAB PO SCH ×2 (07:56→19:48)
--- NOTE | 2016-11-11 09:48 | SOAPPROG ---
SOAP Progress Note Assessment/Plan: Assessment: 26 yo female s/p ltcs, pod 3, with severe pre-eclampsia, doing well. Plan: 11/11/16 09:47 Rh +, rubella immune, home today or tomorrow. Subjective: 26 yo female s/p ltcs, pod 3, with severe pre-eclampsia, doing well. Objective: Vital Signs Temp Pulse Resp BP Pulse Ox 53 L 16 130/76 H 11/11/16 07:56 11/08/16 10:30 11/11/16 07:56 Laboratory Results 11/10/16 06:40 11/10/16 06:40 11/10/16 11/11/16 11/12/16 05:59 05:59 05:59 Intake Total 1788 Output Total 2275 1200 Balance -487 -1200 Physical Exam - Physical Exam General Appearance: no apparent distress Respiratory: lungs clear Cardiac/Chest: regular rate, rhythm Abdomen: non-tender Skin: warm/dry Extremities: non-tender Neuro/Psych: oriented x 3 ICD10 Worksheet Patient Problems: Problems Problem Status Onset delivery delivered Acute Severe pre-eclampsia Acute
--- NOTE | 2016-11-11 09:57 | OBGCSDC ---
General Delivery Information - General Info : 1 Para: 1 Delivery Physician/CNM: Kayleigh Hua Admission Date: 11/07/16 Labs: Patient ABO/Rh O POSITIVE 11/07/16 21:50 Hct 29.2 % (38.0-47.0) L 11/10/16 06:40 Hep Bs Antigen NEGATIVE (NEGATIVE) 11/07/16 21:50 Vaginal - Diagnosis Presentation at Delivery: Vertex - Operations/Procedures Non-surgical Procedures: Amniotomy, IUPC L&D Analgesia/Anesthesia Type: Epidural - Delivery Number of Prior Sections: 0 Indications for Current Section: Arrest of Dilation Non-surgical Procedures: Amniotomy, IUPC Surgical Procedures: Unscheduled Intra-op Complications: None L&D Analgesia/Anesthesia Type: Epidural - Hospital Course Antepartum: scant care, severe pre-eclampsia Intrapartum: arrest of dilation : none Data Pete Delivery Date: 11/08/16 Delivery Time: 22:48 DANIELE: 11/06/16 Gestational Age: 40 week(s) and 5 day(s) Sex of : Male Weight (gm): 3572.04 g Score (1 Min): 7 Score (5 Min): 8 Discharge Information - Discharge Information Discharge Medications: Ibuprofen Condition: Good Instruction/Follow Up: See Instruction Sheet, Two Weeks Discharge Physician/CNM: Malini David
[2016-11-11] MEDS ORDERED: BISACODYL 10 MG SUPP PR PRN (09:58)
[2016-11-11] MEDS ORDERED: MAGNESIUM HYDROXIDE 30 ML UDCUP PO PRN (09:58)
[2016-11-11] MEDS ORDERED: MEASLES,MUMPS&RUBELLA VACC/PF 0.5 ML VIAL SC ONE (09:58)
[2016-11-11] MEDS ORDERED: LACTULOSE 20 GM/30 ML UDCUP PO PRN (09:58)
[2016-11-11] MEDS ORDERED: POLYETHYLENE GLYCOL 3350 17 GM PKT PO PRN (09:58)
[2016-11-11] MEDS: SIMETHICONE 80 MG TAB CHEW PO PRN (19:46)
[2016-11-11] MEDS: SENNOSIDES/DOCUSATE SODIUM TAB PO SCH (19:47)
[2016-11-11] MEDS ORDERED: SENNOSIDES/DOCUSATE SODIUM TAB PO SCH (21:00)
[2016-11-12] MEDS: SENNOSIDES/DOCUSATE SODIUM TAB PO SCH ×2 (00:52→07:55)
[2016-11-12] MEDS: IBUPROFEN 600 MG TAB PO PRN (07:07)
[2016-11-12] MEDS: HYDROCODONE/APAP 5/325 TAB PO PRN (07:07)
[2016-11-12] MEDS: LABETALOL HCL 100 MG TAB PO SCH (07:53)
[2016-11-12 07:55] VITALS: BP 155/106; PULSE 76
--- NOTE | 2016-11-12 11:22 | OBPP ---
Progress Note Assessment/Plan: Assessment: 26 yo female s/p ltcs, pod 4, with severe pre-eclampsia, doing well. Plan: - Rh +, rubella NI, MMR ordered - Preeclampsia - all labs stable and improved, BPs labile but stable on labetalol 100mg BID. Will plan for close interval f/u with office visit in 2 days for repeat BP - Discharge home today. 11/12/16 11:22 Subjective: Pt is ambulating, voiding, pain well controlled with oral meds, voiding, passing flatus and bowel movement, lochia diminishing. Objective: 11/10/16 06:40 11/10/16 06:40 Patient ABO/Rh O POSITIVE 11/07/16 21:50 Uric Acid 8.0 mg/dL (2.5-6.8) H 11/10/16 06:40 Total Bilirubin 0.5 mg/dL (0.1-1.4) 11/10/16 06:40 Conjugated Bilirubin 0.4 mg/dL (0.0-0.5) 11/10/16 06:40 Unconjugated Bilirubin 0.1 mg/dL (0.0-1.1) 11/10/16 06:40 AST 17 IU/L (14-46) 11/10/16 06:40 ALT 20 IU/L (9-52) 11/10/16 06:40 Lactate Dehydrogenase 504 IU/L (313-618) 11/10/16 06:40 Temp Pulse Resp BP Pulse Ox 76 16 155/106 H 11/12/16 07:53 11/08/16 10:30 11/12/16 07:53 Uterine Position/Fundal Height: Umbilicus -1 Uterine Tone: Firm Physical Exam - Physical Exam General Appearance: WD/WN, alert, no apparent distress Respiratory: lungs clear Cardiac/Chest: regular rate, rhythm Abdomen: normal bowel sounds, non-tender, incision (c/d/i, steri strips intact)
== END 2016-11-12 11:45 | disposition home or self-care (01) | DRG 766 ==
LOC: FLD 20:58 → OBSVTOIN 23:21 → FLD 11-09 03:25
PROVIDERS: ADMIT Obstetrics & Gynecology; ATTEND Obstetrics & Gynecology
PROC: 3E033VJ Introduction of Other Hormone into Peripheral Vein, Percutaneous Approach (ICD-10-PCS; principal; 2016-11-08)
PROC: 0U7C7DZ Dilation of Cervix with Intraluminal Device, Via Natural or Artificial Opening (ICD-10-PCS; principal; 2016-11-08)
PROC: 10907ZC Drainage of Amniotic Fluid, Therapeutic from Products of Conception, Via Natural or Artificial Opening (ICD-10-PCS; principal; 2016-11-08)
PROC: 10D00Z1 Extraction of Products of Conception, Low, Open Approach (ICD-10-PCS; principal; 2016-11-08)
DX: O14.14 Severe pre-eclampsia complicating childbirth (principal); O62.0 Primary inadequate contractions; O48.0 Post-term pregnancy; O69.81X0 Labor and delivery complicated by cord around neck, without compression, not applicable or unspecified; O09.33 Supervision of pregnancy with insufficient antenatal care, third trimester; Z23 Encounter for immunization; Z3A.40 40 weeks gestation of pregnancy; Z37.0 Single live birth
CPT/HCPCS: 80305; G0463; G0480; J0360; J0610; J0690; J1100; J1200; J2274; J2370; J2405; J2590; J2704; J3010; J3105; J3475; J3490